=== PATIENT | male | born 1955 | race African-American/Black ===

== ENCOUNTER 2022-11-13 16:59 | Emergency (ER) | payer BC ==
[~2022-11-13] VITALS: Ht 172.7 cm; Wt 101.2 kg
[2022-11-13] MEDS ORDERED: TDAP DIPH,PERTUSS,TET VAC/PF 0.5 ML DISP.SYRIN IM ONE ×2 (17:30→17:43)
[2022-11-13] MEDS ORDERED: HYDROCODONE/APAP 5-325MG TABLET PO ONE (17:30)
[2022-11-13] MEDS ORDERED: HYDROCODONE/APAP 5-325MG TABLET ONE (17:43)
[2022-11-13 18:37] LABS: HEMATOCRIT 47.7 % (36.7-47.1); MEAN CORPUSCULAR HEMOGLOBIN 28.8 uug (23.8-33.4); MEAN CORPUSCULAR VOLUME 87.3 fL (73.0-96.2); PLATELET COUNT (AUTO) 279 K/uL (152-348)
[2022-11-13 18:54] LABS: BILIRUBIN,TOTAL 0.4 mg/dL (0.2-1.0); CREATININE 1.2 mg/dL (0.6-1.3); POTASSIUM 3.7 mmol/L (3.5-5.1); TOTAL PROTEIN, SERUM 7.8 g/dL (6.4-8.2)
[2022-11-13] MEDS ORDERED: HYDR-3980 PO (19:50)
--- NOTE | 2022-11-13 20:18 | NUR ---
Patient discharged to home in stable condition. Written and verbal after care instructions given. Patient verbalizes understanding of instructions. Stressed follow up or return to ER for worsening s/s.
[2022-11-13 22:24] VITALS: BP 145/85
== END 2022-11-13 20:30 | disposition home or self-care (01) ==
LOC: ER 16:59
DX: S09.90XA Unspecified injury of head, initial encounter (principal); S80.11XA Contusion of right lower leg, initial encounter; W17.2XXA Fall into hole, initial encounter; Y93.01 Activity, walking, marching and hiking; Y92.89 Other specified places as the place of occurrence of the external cause; S80.811A Abrasion, right lower leg, initial encounter
CPT/HCPCS: 36415; 70450; 71045; 72125; 73590; 73630; 85025; 90715; A4663